=== PATIENT | female | born 1960 | race Caucasian/White ===

== ENCOUNTER 2016-10-28 09:49 | Emergency (ER) | payer SELFPAY ==
[~2016-10-28] VITALS: Ht 158.8 cm; Wt 118.2 kg
[~2016-10-28 09:49] MED LIST: HYDR-4003 PO; NAPR375T2 PO; OXYC-474 PO
[2016-10-28 09:52] VITALS: BP 162/90; PULSE 88; RESP 15; O2SAT 98
--- NOTE | 2016-10-28 10:01 | ED.REPORT ---
HPI-Abd Pain F 40 and Over Date of Service Oct 28, 2016 ED Provider: Dr. 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 Associated symptoms include hematuria, nausea , vomiting, left leg swelling, subjective fever and chills. Denies leg pain, dysuria, or other urinary symptoms. The pain is continuously moving from the back to the abdomen and back. She reports that these symptoms feel similar to her past kidney stones. Her last kidney stone was about 6 months ago. She denies any hx of DVT or recent leg injury, but she does report that she has a torn meniscus. Nursing Notes Stated Complaint: BACK/KIDNEY PAIN Chief Complaint: Female Abdominal Pain Nursing Notes Reviewed: Yes Allergies: Coded Allergies: No Known Allergies (Verified , 05/01/16) Scheduled PRN Hydrocodone-Acetaminophen 5-325 mg (Hydrocodone-Acetaminophen 5-325 mg) 1 Each Tablet 1 TABLET PO Q4H PRN PRN For Pain Naproxen (Naproxen) 375 Mg Tablet 375 MG PO BID PRN PRN For Pain Oxycodone (Roxicodone) 5 Mg Tablet 2.5-5 MG PO QID PRN PRN For Pain Oxycodone (Roxicodone) 5 Mg Tablet 0.5-1 TAB PO QID PRN PRN For Pain General Time Seen by MD: 10:01 Chief Complaint Flank pain right Hx Obtained From: Patient Arrived By: Walk-in Sudden in Onset?: No Onset Occurred: Yesterday Symptom Duration: Since onset Progression since Onset: Waxes and wanes Location: : Flank right Quality: Painful Severity: Current: Pain level 4 out of 10 Severity: Maximum: Severe Associated with: Reports: Back pain, Chills, Fever, Hematuria, Nausea, Vomiting , Denies: Dysuria, Urinary frequency, Urinary retention, Urinary tract symptoms Recent Healthcare: No recent doctor visit, No recent hospitalization Similar Sx Previous: Yes Past Medical History Past Medical History Pacemaker (after cardiac arrest) Hx of kidney stones Reports: Hypertension Past Surgical History jaw surgeries Reports: Appendectomy, Hysterectomy Family History father: CAD and cancer (62) mother: CHF (age 83) Smoking History Never Smoker Social History Alcohol Use: Denies alcohol use Ambulatory Status Independent Review of Systems Constitutional: Reports: Chills, Fever GI: Reports: Nausea, Vomiting Female: Reports: Flank pain, Hematuria, Denies: Dysuria, Urinary frequency, Urinary urgency, Urination decreased, Urination increased Musculoskeletal: Reports: Extremity swelling, Denies: Extremity pain Complete sys rev & neg: except as marked. Physical Exam Vital Signs Vital Signs (First) Date Time Temp Pulse Resp B/P Pulse Ox O2 Delivery O2 Flow Rate FiO2 10/28/16 09:52 36.2 88 15 162/90 98 Room Air Initial VS: Reviewed Head / Eyes: Atraumatic, Normocephalic, PERRL ENT: Mucous membranes moist, Conjunctiva normal, No scleral icterus Neck: Supple, Non-tender, Full range of motion Skin: Warm, Dry, No cyanosis Neurologic: Alert, Oriented, Nonfocal Psychiatric: Mood/affect normal, Behavior normal, Normal thought content General/Constitutional: Awake, Alert, No acute distress, Well appearing, Well developed Respiratory / Chest: Breath sounds NL, Breath sounds = bilat, No respiratory distress, No rales, No rhonchi, No wheezing, No stridor Pacemaker left upper chest Cardiovascular: Heart rate NL, Regular rhythm, Heart sounds NL, Peripheral circulation NL Abdomen: Atraumatic, Soft, Non-tender Back: Atraumatic, Inspection NL, Full range of motion, Painless range of motion , No CVA tenderness Lower Extremity / Pelvis / MS: Full range of motion, Neurologic intact, Vascular intact Left leg unilateral edema. 2+ dorsalis pedis pulses. Interpretation & Diagnostics Interpretation & Diagnostics: URINE DIP: SP [place]:1.15 pH:5 Leukocytes:+ Nitrites:0 Protein: Trace Glucose:Normal Ketones:0 Urobilinogen:Normal Bilirubin:+ Blood:250 US LOWER EXTREMITY: IMPRESSION: No DVT found left lower extremity. Dictated by: Yovany Thompson M.D. on 10/28/2016 at 11:11 Lab Results Interpretation Test 10/28/16 10:07 Hold Urine Received (Received) Re-Eval/Medical Decision Med Decision/Clinical Course Patient presents with 2 issues. First is likely a recurrent kidney stone in the setting of flank pain and hematuria similar to previous episodes. Records were reviewed, she did have a CT scan approximately 6 months ago which showed a small stone. She is mildly hypertensive and otherwise her vital signs are normal. I do not think that hypertension is indicative of other life-threatening pathology but may be reflection of her pain. Her second issue is painless unilateral left leg swelling, it is not consistent with infection, injury, or deep vein thrombosis and is of unclear etiology. I do not think this represents systemic illness such as liver, kidney, or heart failure. She will be discharged on oxycodone. Recommended to continue her other medicines. Return and follow-up precautions given. Re-Evaluation/Progress #1: Time of Eval: 10:11 Patient Status: Condition improved Re-Evaluation/Progress Note: Discussed urine results and plan for ultrasound. Re-Evaluation/Progress #2: Time of Eval: 10:45 Patient Status: Condition improved Re-Evaluation/Progress Note: Discussed US results and plan for discharge. Counseled Regarding: Diagnosis, Lab results, Need for follow-up, When/why to return to ED Discharge & Departure Primary Impression: Kidney stone Additional Impression: Leg edema, left Disposition: Home Discharge Condition All VS Reviewed: Yes Condition: Improved Additional Instructions: No dangerous cause for your left leg swelling was identified. The ultrasound of your leg did not show a blood clot. A cyst on your urinalysis and symptoms you likely have a recurrent kidney stone. Take your pain medication as prescribed for the pain from your kidney stone. Take 650 mg Tylenol 4 times a day, and oxycodone 1/2 to 1 pill at a time. Return to the ER with any new or worsening symptoms. Follow-up with your regular doctor and urologist for further evaluation. Referrals: Taurus Yang MD (PCP) Ainsley Attestation Portions of this note were transcribed by Cookie Espino. I, Dr. Raymond personally performed the history, physical exam and medical decision-making; I reviewed and confirmed the accuracy of the information in the transcribed note. Signed by: Ainsley Banegas, 10/28/2016 at 1126. copies to: Taurus Yang MDJoe Wenceslao [place] Oct 28, 2016 10:01 COOKIE ESPINO Oct 28, 2016 10:08
[2016-10-28] MEDS ORDERED: oxyCODONE-Acetamin 5-325 mg Tablet PO ONE (10:15)
[2016-10-28] MEDS ORDERED: OXYC-474 PO (10:50)
[2016-10-28 10:59] VITALS: BP 143/93; PULSE 86; O2SAT 95
--- NOTE | 2016-10-28 11:13 | DRSVH ---
PROCEDURE: US VEINOUS LEG DUPLEX UNILATERAL, LEFT INDICATIONS: LEFT LEG SWELLING TECHNIQUE: Real-time imaging, as well as color and pulse Doppler interrogation, were performed of the lower extr emity deep veins from the inguinal ligament to the popliteal fossa. COMPARISON: None. FINDINGS: The deep veins are normally compressible, and free of intraluminal thrombus. Color and pu lse Doppler demonstrate normal phasic intraluminal flow. There is normal augmentation response to di stal compression maneuver. IMPRESSION: No DVT found left lower extremity. Dictated by: Yovany Thompson M.D. on 10/28/2016 at 11:11 Approved by: Yovany Thompson M.D. on 10/28/2016 at 11:12
== END 2016-10-28 11:00 | disposition home or self-care (01) ==
LOC: SED 09:49
DX: N20.0 Calculus of kidney (principal); R60.0 Localized edema; I10 Essential (primary) hypertension; Z95.0 Presence of cardiac pacemaker; Z90.710 Acquired absence of both cervix and uterus
CPT/HCPCS: 93970; 96372; 99284; J1885